=== PATIENT | female | born 1970 | race Two or more races ===

== ENCOUNTER 2022-12-12 21:37 | Emergency (ER) | payer SELFPAY ==
[~2022-12-12] VITALS: Ht 157.5 cm; Wt 68.9 kg
--- NOTE | 2022-12-12 21:45 | NUR ---
The patient is A/Ox4, able to ambulate with steady gait. The patient came in for right big toe pain with pain scale of 8/10. The patient stated she dropped a drawer on her right big toe 3 days ago. The patient stated she has been taking supradol and tylenol for her pain. Upon assessment, her right big toe is swollen and bruised with no open wounds.
[2022-12-12] MEDS ORDERED: HYDROCODONE/APAP 5-325MG TABLET PO ONE (22:00)
[2022-12-12] MEDS ORDERED: KETOROLAC TROMETHAMINE 30 MG INJ IM ONE (22:00)
[2022-12-12] MEDS ORDERED: KETOROLAC TROMETHAMINE 30 MG INJ ONE (22:35)
[2022-12-12] MEDS ORDERED: HYDROCODONE/APAP 5-325MG TABLET ONE (22:36)
[2022-12-13] MEDS ORDERED: HYDR-4209 PO (00:13)
--- NOTE | 2022-12-13 00:30 | NUR ---
Patient discharged to home in stable condition. Written and verbal after care instructions given. Patient verbalizes understanding of instructions. Stressed follow up or return to ER for worsening s/s. The patient is A/Ox4, able to ambulate with steady gait. The patient was instructed not to drive due to the medication given. Her brother will bring her home.
[2022-12-13 01:31] VITALS: BP 135/80; O2SAT 98
== END 2022-12-13 00:30 | disposition home or self-care (01) ==
LOC: ER 21:37
DX: S92.424A Nondisplaced fracture of distal phalanx of right great toe, initial encounter for closed fracture (principal); S90.211A Contusion of right great toe with damage to nail, initial encounter; Z79.899 Other long term (current) drug therapy; X58.XXXA Exposure to other specified factors, initial encounter; Y93.89 Activity, other specified; Y92.89 Other specified places as the place of occurrence of the external cause; Y99.8 Other external cause status
CPT/HCPCS: 99284; 11042; 73660; 96372; J1885; A4663

== ENCOUNTER 2022-12-17 17:26 | Emergency (ER) | payer SELFPAY ==
[~2022-12-17] VITALS: Ht 157.5 cm; Wt 68.0 kg
[~2022-12-17 17:26] MED LIST: HYDR-4209 PO
[2022-12-17 17:39] VITALS: O2SAT 98
[2022-12-17] MEDS ORDERED: HYDR-4209 PO (18:35)
[2022-12-17] MEDS ORDERED: HYDR-4275 PO (19:04)
[2022-12-17] MEDS ORDERED: OXYC-128 PO (19:56)
== END 2022-12-17 19:13 | disposition home or self-care (01) ==
LOC: ER 17:26
DX: S92.421A Displaced fracture of distal phalanx of right great toe, initial encounter for closed fracture (principal); S90.211A Contusion of right great toe with damage to nail, initial encounter; Z79.899 Other long term (current) drug therapy; X58.XXXA Exposure to other specified factors, initial encounter; Y93.89 Activity, other specified; Y92.89 Other specified places as the place of occurrence of the external cause; Y99.8 Other external cause status
CPT/HCPCS: A4663